=== PATIENT | male | born 1940 | race Caucasian/White ===

== ENCOUNTER 2019-08-16 07:43 | Emergency (ER) | payer OTHER ==
[~2019-08-16] VITALS: Ht 175.3 cm; Wt 89.0 kg
--- NOTE | 2019-08-16 08:03 | NUR ---
PATIENT BROUGHT BACK FROM TRIAGE WITH CHIEF COMPLAINT OF CONSTIPATION FOR 5 DAYS. DENIES CP, SOB, RECENT TRAUMA. PATIENT IS ALERT & ORIENTED. AT BEDSIDE.
[2019-08-16] MEDS ORDERED: CLOP75TA52 PO (08:09)
--- NOTE | 2019-08-16 08:09 | NUR ---
PT TO IMAGING
[2019-08-16 08:36] LABS: BASOPHILS # (AUTO) 0.06 x10^3/uL (0-0.1); BASOPHILS % (AUTO) 1 % (0-1); EOSINOPHILS # (AUTO) 0.04 x10^3/uL (0-0.4); EOSINOPHILS % (AUTO) 0 % (1-7); LYMPHOCYTES # (AUTO) 1.09 x10^3/uL (1-3.4); LYMPHOCYTES % (AUTO) 9 % (22-44); MD NO; MEAN CORPUSCULAR HEMOGLOBIN 32.5 pg (27.5-34.5); MEAN CORPUSCULAR HGB CONC 33.9 g/dL (33.2-36.2); MEAN CORPUSCULAR VOLUME 96.1 fL (81-97); MEAN PLATELET VOLUME 6.9 fL (7.4-10.4); MONOCYTES # (AUTO) 0.91 x10^3/uL (0.2-0.8); MONOCYTES % (AUTO) 7 % (2-9); NEUTROPHILS # (AUTO) 10.79 x10^3/uL (1.8-6.8); NEUTROPHILS % (AUTO) 84 % (42-75); PLATELET COUNT 254 x10^3/uL (130-400); RED BLOOD COUNT 4.21 x10^6/uL (4.38-5.82); RED CELL DISTRIBUTION WIDTH 13.4 % (9.4-14.8)
[2019-08-16 08:45] LABS: ALANINE AMINOTRANSFERASE 29 U/L (12-78); ALBUMIN 3.5 g/dL (3.4-5.0); ANION GAP 6 mmol/L (5-15); CALCIUM 8.7 mg/dL (8.5-10.1); CHLORIDE 106 mmol/L (98-107); CREATININE 1.31 mg/dL (0.7-1.3)
[2019-08-16 08:48] LABS: ALKALINE PHOSPHATASE 65 U/L (45-117); BILIRUBIN,TOTAL 0.6 mg/dL (0.2-1.0); TOTAL PROTEIN 7.2 g/dL (6.4-8.2)
[2019-08-16 09:00] VITALS: BP 176/77
--- NOTE | 2019-08-16 09:19 | NUR ---
STEADY AMBULATION TO BATHROOM, UA OBTAINED Addendum: 08/16/19 at 0922 by [email or web address] STEADY AMBULATION TO BATHROOM. PATIENT AWARE OF NEEDED URINE SAMPLE
[2019-08-16] MEDS ORDERED: OMNIPAQUE 350 MG/ML, 100ML BOTTLE ONE (09:43)
[2019-08-16 10:24] LABS: MICROSCOPIC AUTO
--- NOTE | 2019-08-16 10:29 | NUR ---
ULTRA SOUND AT BEDSIDE
[2019-08-16 10:32] LABS: CULTURE INDICATED? NO
--- NOTE | 2019-08-16 11:21 | NUR ---
FIRST CONTACT WITH PT. Patient/Caregiver given discharge instructions and they have confirmed that they understand the instructions. Patient ambulatory with steady gait. PIV D/C WITH TIP INTACT. PRESSURE DRESSING APPLIED. PT LEFT WITH ALL PERSONAL BELONGINGS.
== END 2019-08-16 11:37 | disposition home or self-care (01) ==
LOC: ED 11:35
DX: R10.84 Generalized abdominal pain (principal)
CPT/HCPCS: 36415; 74021; 74177; 76700; 80053; 81001; 83690; 85025; 99285; Q9967